=== PATIENT | male | born 1955 | race Caucasian/White ===

== ENCOUNTER 2018-08-29 12:46 | Emergency (ER) | payer BC, OTHER ==
[2018-08-29 13:37] LABS: #Eosinphils 0.2 thou/uL (0.0-0.7); #Lymphocytes 1.3 thou/uL (1.20-3.40); #Monocytes 0.9 thou/uL (0.11-0.59); #Neutrophils 3.8 thou/uL (1.40-6.50); %Basophils 0.7 % (0.0-1.0); %Eosinophils 3.8 % (0.0-10.0); %Lymphocytes 20.4 % (21.0-51.0); %Monocytes 14.4 % (0.0-10.0); %Neutrophils 60.7 % (42.0-75.0); Hemoglobin 14.2 g/dL (14.0-18.0); Mean Corpuscular HGB CONC 34.1 g/dL (32.0-36.0); Mean Corpuscular Hemoglobin 32.8 pg (27.0-31.0); Mean Corpuscular Volume 96.3 fL (78.0-98.0); Mean Platelet Volume 6.8 fL (7.4-10.4); Platelet Count 248 thou/uL (130-400); RBC Distribution Width 11.7 % (11.5-14.5); Red Blood Cell (RBC) Count 4.33 mill/uL (4.70-6.10); White Blood Cell (WBC) Count 6.3 thou/uL (4.8-10.8)
[2018-08-29 13:59] LABS: ALT (SGPT) 18 U/L (8-55); AST (SGOT) 18 U/L (5-34); Albumin 3.9 g/dL (3.4-4.8); Alkaline Phosphatase 68 U/L (40-150); Anion Gap 13 mmol/L (10-20); BUN (Urea Nitrogen) 15 mg/dL (8.4-25.7); Bilirubin, Total 0.5 mg/dL (0.2-1.2); Calc. Creatinine Clearance 0 mL/min (70-130); Calcium 9.7 mg/dL (7.8-10.44); Carbon Dioxide 28 mmol/L (23-31); Chloride 101 mmol/L (98-107); Estimated GFR-MDRD 87; Globulin 3.9 g/dL (2.4-3.5); Glucose 108 mg/dL (80-115); Potassium 4.5 mmol/L (3.5-5.1); Protein, Total 7.8 g/dL (5.8-8.1); Sodium 137 mmol/L (136-145)
--- NOTE | 2018-08-29 15:24 | CT ---
CT Chest W Con: 08/29/2018 1:56 PM CLINICAL INDICATION: History of right-sided neck swelling and fever. COMPARISON: None.. FINDINGS: Lung and Large Airways: There are patchy areas of reticular nodular opacity seen within the right upp er lobe, right middle lobe, right lower lobe, left lower lobe, lingula and left upper lobe. No confluent airspace opacity is evident. There is mild scattered centrilobular emphysema. Pleura: No effusion or mass. Vessels: There are mild scattered calcifications involving the thoracic aorta and coronary arteries. Heart: Normal appearing. No pericardial effusion.. Mediastinum and Linda: Normal. Chest Wall and Lower Neck: Normal. Upper Abdomen: There is fatty infiltration of the liver. There are small hypodensities within the rig ht hepatic lobe both measuring 9 mm, difficult characterize due to their size but statistically likely reflecting cysts. There is a partially imaged 9.2 cm cystic abnormality involving the superior pole the right kidney. This is incompletely characterized. Bones: No acute osseous abnormality. There is scattered degenerative and osteoarthritic change presen t. IMPRESSION: Patchy reticulonodular opacities within both lungs suspicious for bronchiolitis of infectious or infl ammatory etiology. Mild centrilobular emphysema Fatty liver Hypodensities within the right hepatic lobe, statistically likely reflective of cysts. Incompletely characterized cystic abnormalities superior pole right kidney. Follow-up renal ultrasoun d is recommended to further evaluate this abnormality.
--- NOTE | 2018-08-29 15:37 | CT ---
EXAM: CT Neck Soft Tissue W Con PROVIDED CLINICAL HISTORY: Right-sided neck swelling since this morning. COMPARISON: None FINDINGS: There is edema seen within the right submandibular gland with adjacent edema in the submandibular spa ce. There is thickening of the platysma muscle with adjacent inflammatory changes and subcutaneous edema which extends inferiorly to the level of the hyoid bone and thyroid cartilage. Findings are lik hang attributable to sialadenitis. However, no calculus is seen along the expected course of [place]'s duct. There is mucosal edema seen in the right pharyngeal location likely reactive in origi n from the adjacent inflammatory changes. These inflammatory changes do result in mass effect on the right aspect of the pharynx.. There is no fluid collection seen to suggest an abscess. No enlarged lymph nodes are seen by CT size criteria. The left submandibular gland, bilateral parotid glands, and thyroid gland demonstrate a normal CT bethanie earance. Prevertebral space and each carotid space have a normal appearance. Mucosal thickening is present within the bilateral maxillary antra and ethmoidal air cells. Reticulonodular densities are seen partially imaged in the anterior aspect of the left upper lobe whi ch may represent infectious or inflammatory process. Degenerative changes are seen in the cervical spine. IMPRESSION: 1. Findings most suggestive of sialadenitis involving the right submandibular gland with adjacent marie ma and inflammatory changes . No calculus is seen along the expected course of [place]'s duct, and there is no evidence of an abscess collection. 2. Reticulonodular densities left upper lobe suggesting infectious or inflammatory process.
--- NOTE | 2018-08-29 16:44 | ULT ---
Bilateral renal ultrasound CLINICAL INDICATION: Abnormal CT scan COMPARISON: CT thorax on 08/29/2018. FINDINGS: Right kidney: There is a large exophytic anechoic structure seen at the superior pole right kidney me asuring 10.2 cm in maximal dimensions. There is a thin linear septation seen within this cyst; however, there is a nodular echogenic area peripherally which may represent nodular thickening involv ing the septation. The right kidney measures 10.7 cm x 5.6 cm. There is no hydronephrosis. Left kidney: There is a small exophytic anechoic structure the inferior pole left kidney measuring 5. 3 cm in maximal dimensions which demonstrates sonographic characteristics most compatible with a cyst. The left kidney measures 15.4 cm x 7.1 cm. The left renal length is increased with respect to l ength the right kidney, but the length the right kidney includes the inferior pole exophytic left renal cystic lesion. There is no hydronephrosis. Urinary bladder: Within normal limits for degree of distention. Ureteral jets are seen bilaterally on color flow evaluation. Urinary bladder volume is 303 mL. The visualized right hepatic lobe demonstrates increased echogenicity relative to the right kidney ambrocio ggesting fatty infiltration. IMPRESSION: 1. Large superior pole right renal cyst with thin linear septation. In addition, there is an echogeni c nodular area along the septation which requires further evaluation and characterization. CT scan of the abdomen following three-phase imaging is recommended for further evaluation. 2. Left renal cyst. 3. Fatty infiltration of the visualized liver.
== END 2018-08-29 17:29 | disposition home or self-care (01) ==
LOC: ERS 12:46
DX: K11.20 Sialoadenitis, unspecified (principal); J18.9 Pneumonia, unspecified organism; N28.89 Other specified disorders of kidney and ureter
CPT/HCPCS: 36415; 70491; 71260; 76770; 80053; 85025

== ENCOUNTER 2023-11-28 09:19 | Outpatient (CLI) | payer MEDICARE | END 2023-11-28 09:20 | disposition home or self-care (01) | LOC: RAD 09:19 | PROVIDERS: ATTEND Internal Medicine Critical Care Medicine | DX: R06.00 Dyspnea, unspecified (principal) | CPT/HCPCS: 71046 ==

== ENCOUNTER 2024-04-24 10:00 | Outpatient (CLI) | payer MEDICARE | END 2024-04-24 10:01 | disposition home or self-care (01) | LOC: MRI 10:00 | PROVIDERS: ATTEND Family Medicine | DX: M47.26 Other spondylosis with radiculopathy, lumbar region (principal); M25.552 Pain in left hip; M51.16 Intervertebral disc disorders with radiculopathy, lumbar region; M16.12 Unilateral primary osteoarthritis, left hip; M24.152 Other articular cartilage disorders, left hip; M48.061 Spinal stenosis, lumbar region without neurogenic claudication; M47.817 Spondylosis without myelopathy or radiculopathy, lumbosacral region; M51.379 Other intervertebral disc degeneration, lumbosacral region without mention of lumbar back pain or lower extremity pain; M48.07 Spinal stenosis, lumbosacral region; E88.2 Lipomatosis, not elsewhere classified | CPT/HCPCS: 72148 ==

== ENCOUNTER 2024-11-27 10:37 | Outpatient (CLI) | payer MEDICARE | END 2024-11-27 10:38 | disposition home or self-care (01) | LOC: RAD 10:37 | PROVIDERS: ATTEND Internal Medicine Critical Care Medicine | DX: R06.00 Dyspnea, unspecified (principal); R06.9 Unspecified abnormalities of breathing; J44.9 Chronic obstructive pulmonary disease, unspecified; I51.7 Cardiomegaly | CPT/HCPCS: 71046 ==

== ENCOUNTER 2025-03-19 08:59 | Outpatient (CLI) | payer MEDICARE | END 2025-03-19 09:00 | disposition home or self-care (01) | LOC: SCSULT 08:59 | PROVIDERS: ATTEND Nurse Practitioner Family | DX: F10.10 Alcohol abuse, uncomplicated (principal); R19.00 Intra-abdominal and pelvic swelling, mass and lump, unspecified site; R16.0 Hepatomegaly, not elsewhere classified; K76.0 Fatty (change of) liver, not elsewhere classified | CPT/HCPCS: 76700; 76705; 93976 ==